=== PATIENT | male | born 1955 | race Caucasian/White ===

== ENCOUNTER 2017-01-27 13:11 | Inpatient (IN) | payer OTHER, MEDICAID ==
[~2017-01-27] VITALS: Ht 175.3 cm; Wt 40.8 kg
[~2017-01-27 13:11] MED LIST: AGM875T PO; ALBU8.5H2 IH; CEFD300C3 PO; FLUT1DIS27 IH; HYDR-757 PO; IPRA3AMP; LEVO750T6 PO; Levofloxacin PO; NCT14P SUBDERM; NCT14P TD; NCT21TD TD; NCT7P SUBDERM; NS.65NA45; PHEN120L2 MC; PRD10T PO; PRD20T PO; PRD50T PO; PRD5T PO; RT-ALBUINH IH; TIOT18CA IH; TIOT18CA2 IH
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
[2017-01-27 14:02] LABS: BASOPHILS % (AUTO) 0 % (0-10); EOSINOPHILS # (AUTO) 0.2 10^3/uL (0.0-0.3); EOSINOPHILS % (AUTO) 1 % (0-10); LYMPHOCYTES % (AUTO) 7 % (12-44); MEAN CORPUSCULAR HEMOGLOBIN 31 PG (25-34); MEAN CORPUSCULAR HGB CONC 31 G/DL (32-36); MEAN CORPUSCULAR VOLUME 101 FL (80-99); MEAN PLATELET VOLUME 9.5 FL (7.4-10.4); MONOCYTES # (AUTO) 2.5 X 10^3 (0.0-1.0); MONOCYTES % (AUTO) 8 % (0-12); NEUTROPHILS # (AUTO) 26.2 X 10^3 (1.8-7.8); NEUTROPHILS % (AUTO) 85 % (42-75); PLATELET COUNT 475 10^3/uL (130-400); RED BLOOD COUNT 3.95 10^6/uL (4.35-5.85); RED CELL DISTRIBUTION WIDTH 14.6 % (10.0-14.5)
[2017-01-27 14:04] LABS: WHITE BLOOD COUNT 30.9 10^3/uL (4.3-11.0)
[2017-01-27 14:13] LABS: ALANINE AMINOTRANSFERASE 13 U/L (0-55); ALBUMIN 2.8 G/DL (3.2-4.5); ALCOHOL < 10 MG/DL (<10); ANION GAP 11 MMOL/L (5-14); ASPARTATE AMINO TRANSFERASE 15 U/L (5-34); BILIRUBIN,TOTAL 0.4 MG/DL (0.1-1.0); BLOOD UREA NITROGEN 9 MG/DL (7-18); BUN/CREATININE RATIO 17; CALCIUM 8.3 MG/DL (8.5-10.1); CARBON DIOXIDE 35 MMOL/L (21-32); CHLORIDE 96 MMOL/L (98-107); CREATININE SERUM 0.54 MG/DL (0.60-1.30); GFR ESTIMATED > 60; GLUCOSE 117 MG/DL (70-105); SODIUM 142 MMOL/L (135-145); TOTAL PROTEIN 5.7 G/DL (6.4-8.2)
[2017-01-27 14:14] LABS: POTASSIUM 4.3 MMOL/L (3.6-5.0)
--- NOTE | 2017-01-27 14:29 | Diagnostic Imaging Report ---
INDICATION: Sampson. Study compared to 02/26/2016 FINDINGS: Severe biapical fibrosis, cyst formation and underlying COPD are noted as chronic findings. Apical parenchymal densities however have progressed and elements of active pneumonia superimposed could not be excluded. No pneumothorax. No chest wall fracture. IMPRESSION: While there is severe chronic pleural-parenchymal underlying disease present densities in the apices have increased and pneumonia superimposed could not be excluded. Dictated by: Dictated on workstation # [id number]
[2017-01-27 14:33] LABS: BAND NEUTROPHILS 0 %; BASOPHILS % (MANUAL) 1 %; EOSINOPHILS % (MANUAL) 1 %; LYMPHOCYTES % (MANUAL) 9 %; NEUTROPHILS % (MANUAL) 88 %; POIKILOCYTOSIS SLIGHT
[2017-01-27] MEDS: BACITRACIN OINTMENT 28 GM TUBE TOP SCH (14:52)
[2017-01-27] MEDS ORDERED: morphine INJ 10 MG/ML 1ML (SYR OR VIAL) IVP ONE (15:00)
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
[2017-01-27 15:55] VITALS: BP 122/69
[2017-01-27] MEDS ORDERED: ONDANSETRON 4 MG/2 ML (SDV) Z0FRAN IVP PRN (17:15)
[2017-01-27] MEDS ORDERED: ATROPINE 1% OPHTHALMIC SOLN 2 ML SL PRN (17:15)
[2017-01-27] MEDS ORDERED: BISACODYL 10 MG SUPP (DULCOLAX) PR PRN (17:15)
[2017-01-27] MEDS ORDERED: SALIVA STIMULANT MOUTH SPRAY (BIOTENE) 1.5 OZ MM PRN (17:15)
[2017-01-27] MEDS ORDERED: ARTIFICAL TEARS 0.4 ML UNIT DOSE (REFRESH PLUS) OU PRN (17:15)
[2017-01-27] MEDS ORDERED: PROMETHAZINE INJ 25 MG/ML (PHENERGAN) AMP IVP PRN (17:15)
[2017-01-27] MEDS ORDERED: ARTIFICIAL TEARS OINT (LACRI-LUBE) 3.5 GM TUBE OU PRN (17:15)
[2017-01-27] MEDS ORDERED: ACETAMINOPHEN 650 MG SUPP (TYLENOL) PR PRN (17:15)
[2017-01-27] MEDS ORDERED: FLU TRIvalent (5 YOA+) 2016-17 (AFLURIA) 0.5 ML IM ONE (17:15)
[2017-01-27] MEDS ORDERED: LORazepam INJ 2 MG/ML (ATIVAN) VIAL IV PRN (17:15)
[2017-01-27] MEDS ORDERED: LACTATED RINGERS 1,000 ML IV ONE (17:15)
[2017-01-27] MEDS ORDERED: morphine INJ 4 MG/ML 1 ML (VIAL/SYRINGE) IV PRN (17:15)
[2017-01-27] MEDS ORDERED: RT-ALBUTEROL/IPRATROPIUM 3 ML (DUONEB) VIAL INH PRN (17:15)
[2017-01-27 20:00] VITALS: BP 129/69
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
[2017-01-27] MEDS ORDERED: LACTATED RINGERS 1,000 ML IV SCH (23:55)
[2017-01-28 00:35] VITALS: BP 111/71
[2017-01-28] MEDS: CATHETER FLUSH 10 ML SYR IV PRN ×4 (01:39→19:05)
[2017-01-28] MEDS: LORazepam INJ 2 MG/ML (ATIVAN) VIAL IVP PRN ×2 (01:39→05:04)
[2017-01-28] MEDS: morphine INJ 4 MG/ML 1 ML (VIAL/SYRINGE) IV PRN ×3 (03:35→09:17)
[2017-01-28 04:00] VITALS: BP 82/54
[2017-01-28] MEDS: GLYCOPYRROLATE 0.2 MG/ML (ROBINUL) 2 ML VIAL IV PRN ×2 (06:43→19:05)
[2017-01-28 08:00] VITALS: BP 66/43
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
[2017-01-28] MEDS ORDERED: RT-ALBUINH INH (08:42)
[2017-01-28] MEDS ORDERED: FLUT1DIS27 IH (08:42)
[2017-01-28] MEDS ORDERED: TIOT18CA2 IH (08:42)
[2017-01-28] MEDS: BACITRACIN OINTMENT 28 GM TUBE TOP SCH ×2 (09:12→21:00)
[2017-01-28] MEDS ORDERED: NS IV 1000 ML 1,000 ML IV SCH (10:15)
[2017-01-28] MEDS ORDERED: morphine PCA 30 MG/30 ML VIAL IV PRN (10:15)
[2017-01-28] MEDS ORDERED: NS IV 500 ML 500 ML ONE (10:27)
[2017-01-28 12:00] VITALS: BP 56/46
[2017-01-28 16:00] VITALS: BP 49/32
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
== END 2017-01-28 19:56 | disposition expired | DRG 928 ==
LOC: EDUNIT# 13:11 → ER 13:12 → 4TH 15:18
PROVIDERS: ADMIT Family Medicine; ATTEND Family Medicine
DX: T20.34XA Burn of third degree of nose (septum), initial encounter (principal); T27.3XXA Burn of respiratory tract, part unspecified, initial encounter; J96.10 Chronic respiratory failure, unspecified whether with hypoxia or hypercapnia; T23.152A Burn of first degree of left palm, initial encounter; T23.151A Burn of first degree of right palm, initial encounter; T20.26XA Burn of second degree of forehead and cheek, initial encounter; T20.22XA Burn of second degree of lip(s), initial encounter; T26.01XA Burn of right eyelid and periocular area, initial encounter; T26.02XA Burn of left eyelid and periocular area, initial encounter; Z66 Do not resuscitate; T31.0 Burns involving less than 10% of body surface; J44.9 Chronic obstructive pulmonary disease, unspecified; I10 Essential (primary) hypertension; F17.210 Nicotine dependence, cigarettes, uncomplicated; Z99.81 Dependence on supplemental oxygen; X04.XXXA Exposure to ignition of highly flammable material, initial encounter; Y92.019 Unspecified place in single-family (private) house as the place of occurrence of the external cause; Y99.8 Other external cause status; Z51.5 Encounter for palliative care
CPT/HCPCS: 36415; 71010; 80053; 80320; 85007; 85027; 93041; 94760; 96374